=== PATIENT | male | born 1960 | race Caucasian/White ===

== ENCOUNTER 2017-11-21 12:22 | Emergency (ER) | payer OTHER ==
[2017-11-21 12:30] VITALS: BP 162/96
--- NOTE | 2017-11-21 12:31 | ED HAND/WRIST INJURY COMPLAINT ---
History of Present Illness General Chief Complaint: Major Burn/Smoke Inhalation Stated Complaint: WORK RELATED BURN TO L HAND AND ABD Source: patient Exam Limitations: no limitations Vital Signs & Intake/Output Vital Signs & Intake/Output Vital Signs Date Time Temp Pulse Resp B/P B/P Pulse O2 O2 Flow FiO2 Mean Ox Delivery Rate 11/21 1230 98.0 67 20 162/96 99 Allergies Coded Allergies: codeine (NAUSEA 11/21/17) Reconcile Medications Oxycodone HCl/Acetaminophen (Percocet 5-325 MG Tablet) 5 MG-325 MG TABLET 1-2 TAB PO Q6P PRN PAIN Triage Note: PER PT BURNED RT HAND AND A LITTLE BIT OF STOMACH AT WORK ON HOT STEAM HEATED TO 400 DEGREES PT HAD GLOVES ON BUT RIPPED IT OFF RIGHT AWAY. SKIN RED TO RT POSTERIOR HAND SKIN SLOUGHED. 2ND DEGREE. NON CIRCUMFRENTIAL Triage Nurses Notes Reviewed? yes HPI: Patient was at work and he accidentally got burned by steam. There was some splashing of hot water as well. He took the brunt of the burn to the back of his right hand. Patient was wearing gloves. He immediately developed a global off and noticed that his skin was peeling. Patient went and grabbed an icepack and then comes in for evaluation. Patient is unsure when his last tetanus shot was. Patient states that he also got splashed of pace to his abdomen. Patient is complaining of 10 out of 10 burning pain to his hand as well as 6 out of 10 burning pain to his abdomen. There is no radiation. There are no aggravating or mitigating factors. The pain is constant. Past History Travel History Traveled to [place] past 21 day No Medical History Any Pertinent Medical History? none Neurological: NONE EENT: NONE Cardiovascular: NONE Respiratory: NONE Gastrointestinal: NONE Hepatic: NONE Renal: NONE Musculoskeletal: NONE Psychiatric: NONE Endocrine: NONE Tetanus Vaccine: Surgical History Surgical History: non-contributory Psychosocial History What is your primary language Serbian Tobacco Use: Never used ETOH Use: occasional use Illicit Drug Use: denies illicit drug use Family History Hx Contributory? No Review of Systems Review of Systems Constitutional: Reports: no symptoms. Respiratory: Reports: no symptoms. Cardiovascular: Reports: no symptoms. Musculoskeletal: Reports: see HPI. Neurological/Psychological: Reports: no symptoms. Immunologic/Allergic: Reports: no symptoms. Physical Exam Physical Exam General Appearance: well developed/nourished, alert, awake, anxious, moderate distress Head: atraumatic, normal appearance Eyes: Bilateral: PERRL, EOMI. Ears, Nose, Throat: normal pharynx, normal ENT inspection, hearing grossly normal Neck: normal inspection, supple, full range of motion Cardiovascular/Respiratory: normal breath sounds, normal peripheral pulses, regular rate/rhythm Gastrointestinal: SPOTS OF FIRST DEGREE PACE TO ABDOMINE Hand Left: normal inspection, normal range of motion Hand Right: SECOND DEGREE BURN TO DORSAL ASPECT OF HAND Lymphatic: no anterior cervical angelina Progress Differential Diagnosis: BURN Plan of Care: Current Medications Sig/Jason Start time Last Medication Dose Stop Time Status Admin Hydromorphone HCl 2 MG ONCE ONE 11/21 1245 UNVr (Dilaudid) 11/21 1246 Comments: DR. BROWN IS AT BEDSIDE. Departure Departure Disposition: HOME OR SELF CARE Condition: Stable Clinical Impression Primary Impression: Second degree burn of back of hand Qualifiers: Encounter type: initial encounter Laterality: right Qualified Code: T23.261A - Burn of second degree of back of right hand, initial encounter Referrals: Tea Pope MD (PCP/Family) Mikey QUEEN,Michael Ceron Additional Instructions: KEEP BURN COVERED AND CHANGE THE DRESSING DAILY TAKE PERCOCET NEEDED FOR PAIN FOLLOW UP WITH DR. DE JESUS RETURN IF SYMPTOMS WORSEN OR FOR ANY CONCERNS Departure Forms: Customer Survey General Discharge Information Prescriptions: Current Visit Scripts Oxycodone HCl/Acetaminophen (Percocet 5-325 MG Tablet) 1-2 TAB PO Q6P PRN PAIN #20 TAB
[2017-11-21] MEDS ORDERED: PERCOCET 5-3251 EACH PO (13:20)
--- NOTE | 2017-11-21 13:46 | Cons- Plastic Surgery ---
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 When cleaning the machine and while wearing gloves steam escaped along with a spray of hardware striking his dorsal right hand and abdominal wall. He was wearing a shirt period. He removed the right: Immediately and applied an ice pack. He was brought to the emergency room for evaluation. He complains of some discomfort of the dorsal right hand. He is using an ice pack. Allergies/Medications Allergies: Coded Allergies: codeine (NAUSEA 11/21/17) Home Med List: Oxycodone HCl/Acetaminophen (Percocet 5-325 MG Tablet) 5 MG-325 MG TABLET 1-2 TAB PO Q6P PRN PAIN Past History Medical History Neurological: NONE EENT: NONE Cardiovascular: NONE Respiratory: NONE Gastrointestinal: NONE Hepatic: NONE Renal: NONE Musculoskeletal: NONE Psychiatric: NONE Endocrine: NONE Surgical History Pertinent Surgical History: non-contributory Psychosocial History ETOH Use: occasional use Illicit Drug Use: denies illicit drug use Exam & Diagnostic Data Vital Signs and I&O Vital Signs Date Time Temp Pulse Resp B/P B/P Pulse O2 O2 Flow FiO2 Mean Ox Delivery Rate 11/21 1230 98.0 67 20 162/96 99 Intake & Output 11/21 1600 11/21 0811/21 0000 11/20 1600 11/20 0000 Intake Total 0 Output Total Balance 0 Intake, Oral 0 Physical Exam General Appearance: well developed/nourished, no apparent distress, alert, awake Head: atraumatic, normal appearance Eyes: Bilateral: normal appearance, PERRL, EOMI. Ears, Nose, Throat: normal pharynx, normal ENT inspection, hearing grossly normal Neck: normal inspection, supple, full range of motion Respiratory: no respiratory distress, quiet respiration Cardiovascular: regular rate/rhythm, normal peripheral pulses Peripheral Pulses: 2+ carotid (R), 2+ carotid (L) Gastrointestinal: soft, non-tender Back: normal inspection, normal range of motion Extremities: normal inspection (see below) Neurologic/Psych: no motor/sensory deficits, awake, alert, oriented x 3, normal mood/affect Cranial Nerves: normal hearing, normal speech, PERRL Skin: intact (see below), normal color, warm/dry Lymphatic: no anterior cervical angelina Other Physical Findings: The dorsal aspect of the right hand there is blistering with a red and pink moist intact superficial dermis-grossly. There are no fluid-filled blisters. Range of motion is adequate with mild edema. No open wounds into the dermis. The anterior abdominal wall shows spotty areas of first-degree injury with intact epidermis. Assessment/Plan Assessment/Plan Superficial burn injury anterior abdominal wall, superficial second-degree injury dorsal right hand. Area dressed and treated with gauze and Silvadene. Patient advised on wound care including daily soap and water Silvadene dry gauze. Follow-up office next week. Expect full recovery without deficit. Likely very minimal scarring as well. Consult Acknowledgment - Thank you for your consult request.
== END 2017-11-21 13:26 ==
LOC: ERH 12:22
DX: T23.201A Burn of second degree of right hand, unspecified site, initial encounter (principal); X14.1XXA Other contact with hot air and other hot gases, initial encounter; Y92.9 Unspecified place or not applicable; Y93.9 Activity, unspecified
CPT/HCPCS: 90471; 90714; 96372